=== PATIENT | male | born 1960 | race Caucasian/White ===

== ENCOUNTER 2025-02-24 23:00 | Emergency (ER) | payer SELFPAY ==
[2025-02-24 23:06] VITALS: BP 180/97; PULSE 82; RESP 16; TEMP 36.7; O2SAT 98; BMI 35.0
--- NOTE | 2025-02-24 23:10 | ED_ITS ---
HPI - General Adult General Time Seen by Provider: 23:10 Date Seen: 02/24/25 Chief complaint: Hypertension Stated complaint: High BP 203/103 Time Seen by Provider: 02/24/25 23:09 Source: patient Mode of arrival: ambulatory Limitations: no limitations History of Present Illness HPI narrative: Patient presents today with high blood pressure, recently had lisinopril in creased and noted elevated blood pressure at home tonight. Patient notes he has been checking his blood pressure 3 or 4 times a day as he recently increased his lisinopril. Normally is in the 150-180 range but today it was over 200 and so he decided to come in. Denies chest pain, shortness of breath, numbness or tingling the arms or legs, urinary symptoms. Taking lisinopril 20 mg daily. Related Data Home Medications ?Medication ?Instructions ?Recorded ?Confirmed lisinopril 20 mg tablet 20 mg PO DAILY 02/24/25 02/24/25 Allergies Allergy/AdvReac Type Severity Reaction Status Date / Time No Known Drug Allergies Allergy Verified 02/24/25 23:04 Exam Narrative: Exam Narrative: General: well nourished , NAD Head: Atraumatic and normocephalic ENT: External ears and external nose are normal Eyes: Conjunctiva clear, pupils are equal reactive, external ocular motions are intact Neck: Full spontaneous range of motion of the neck Lungs: No respiratory distress Musculoskeletal: No tenderness or deformity Neurologic: No gross focal neurologic deficits Skin: No rashes Psych: Mood and affect are appropriate Const: Vital Signs, click to edit/add: Vital Signs - 24 hr 02/24/25 23:06 Temperature 98.0 F Pulse Rate [Pulse Oximeter] 82 Respiratory Rate 16 Blood Pressure [Ri ght Upper Arm] 180/97 H Pulse Oximetry 98 Oxygen Delivery Me thod Room Air Course Course ED Course: Patient seen and examined, presents today with asymptomatic hypertension. We had a long discussion about high blood pressure, acute and chronic treatment and complications. Blood pressure slightly improved in the emergency department, patient is asymptomatic as previously stated, and stable for discharge. He has a follow-up appointment with his primary care doctor next week for recheck. Vital Signs Vital signs: Initial Vital Signs Temperature 98.0 F 02/24/25 23:06 Temperature Source Temporal Artery Scan 02/24/25 23:06 Pulse Rate 82 02/24/25 23:06 Respiratory Rate 16 04/15/25 23:06 Blood Pressure 180/97 H 02/24/25 23:06 Blood Pressure Mean 124 H 02/24/25 23:06 Pulse Oximetry 98 02/24/25 23:06 Oxygen Delivery Method Room Air 02/24/25 23:06 Vital Signs Temperature 98.0 F 02/24/25 23:06 Pulse Rate 82 02/24/25 23:06 Respiratory Rate 16 02/24/25 23:06 Blood Pressure 180/97 H 02/24/25 23:06 Pulse Oximetry 98 02/24/25 23:06 Oxygen Delivery Method Room Air 02/24/25 23:06 Temperature 98.0 F 02/24/25 23:06 Pulse Rate 82 02/24/25 23:06 Respiratory Rate 16 02/24/25 23:06 Blood Pressure 180/97 H 02/24/25 23:06 Pulse Oximetry 98 02/24/25 23:06 Oxygen Delivery Method Room Air 02/24/25 23:06 Discharge Plan Discharge Clinical Impression: Hypertension, uncontrolled Patient Disposition: Home, Self-Care Condition: Stable Instructions: Hypertension (ED) Additional Instructions: Continue your lisinopril Check your blood pressure once a day at the same time daily Follow-up with your primary care doctor as scheduled Activity Level: Activity as Tolerated Discharge Diet: Heart Healthy (2 gm sodium, low fat) Prescriptions: No Action lisinopril 20 mg tablet 20 mg PO DAILY Stand Alone Forms: MyHealth Info Instructions
--- OUTSIDE RECORDS SUMMARY | 2025-02-24 23:53 | XMS_ITS | Encounter Summary ---
Author Organization [facility] Address [address] [place] [address] Care Team Providers Care Clinical Science Liaison Name Role Phone Unavailable Primary Care Provider Unavailabl e Prior Encounters Date Type Department Care Team Description 02/13/2025 10:30 AM CDT Office Visit [facility] [place] [address] [place] [address] Poornima Browning, DALJIT Encounter for dental examination and cleaning without abnormal findings (Primary Dx) 02/13/2025 10:30 AM CDT Office Visit [facility] [place] [address] [place] [address] Nichelle Dominguez, [facility] 12/29/2024 1:30 PM FIELD SUPPORT REP Office Visit [facility] [place] [address] [place] [address] Michelle De Luna DDS 08/19/2024 11:00 AM CDT Office Visit [facility] [place] [address] [place] [address] Aziza Taylor, [facility] 05/06/2024 10:00 AM CDT Office Visit [facility] [place] [address] [place] [address] Nichelle Dominguez, [facility] 05/06/2024 7:00 AM CDT Office Visit [facility] [place] [address] [place] [address] Feliberto Trammell DMD Encounter for dental examination and cleaning without abnormal findings (Primary Dx) Last Filed Vital Signs Vital Sign Reading Time Taken Comments Blood Pressure 183/106 02/13/2025 10:50 AM CDT Pulse 85 02/13/2025 10:50 AM CDT Temperature - - Respiratory Rate - - Oxygen Saturation - - Inhaled Oxygen Concentration - - Weight - - Height - - Body Mass Index - - Plan of Treatment Not on file Procedures Procedure Name Priority Date/Time Associated Diagnosis Comments OFFICE VISIT FOR OBSERVATION (DURING REGULARLY SCHEDULED HOURS) - NO OTHER SERVICES PERFORMED Routine 02/13/2025 10:30 AM CDT INTRAORAL PHOTO Routine 02/13/2025 10:30 AM CDT INTRAORAL PHOTO Routine 02/13/2025 10:30 AM CDT INTRAORAL PHOTO Routine 02/13/2025 10:30 AM CDT INTRAORAL PHOTO Routine 02/13/2025 10:30 AM CDT BITEWINGS - FOUR RADIOGRAPHIC IMAGES Routine 02/13/2025 10:30 AM CDT PERIODIC ORAL EVALUATION - ESTABLISHED PATIENT Routine 02/13/2025 10:30 AM CDT Encounter for dental examination and cleaning without abnormal findings NC X-RAY Routine 12/29/2024 1:30 PM FIELD SUPPORT REP 3 CEMENT CROWN Routine 12/29/2024 1:30 PM FIELD SUPPORT REP 3 CORE BUILDUP, INCLUDING ANY PINS WHEN REQUIRED Routine 12/29/2024 1:30 PM FIELD SUPPORT REP 3 CERECFIRED CROWNPOST Routine 1:30 PM FIELD SUPPORT REP INTRAORAL PHOTO Routine 12/29/2024 1:30 PM FIELD SUPPORT REP BITEWING - SINGLE RADIOGRAPHIC IMAGE Routine 12/29/2024 1:30 PM FIELD SUPPORT REP LIMITED ORAL EVALUATION - PROBLEM FOCUSED Routine 12/29/2024 1:30 PM FIELD SUPPORT REP SINGLE X-RAY Routine 12/29/2024 1:30 PM FIELD SUPPORT REP ORAL HYGIENE INSTRUCTIONS Routine 08/19/2024 11:00 AM CDT DUSTIN DECON Routine 08/19/2024 11:00 AM CDT PERIO MAINTENANCE Routine 08/19/2024 11: 00 AM CDT LR ANTIBACT IRR/QUAD Routine 08/19/2024 11:00 AM CDT UR ANTIBACT IRR/QUAD Routine 08/19/2024 11:00 AM CDT UL ANTIBACT IRR/QUAD Routine 08/19/2024 11:00 AM CDT LL ANTIBACT IRR/QUAD Routine 08/19/2024 11:00 AM CDT ALERT 2 PANEL Routine 05/06/2024 10:00 AM CDT ALERT 2 PANEL ANALYSIS Routine 10:00 AM CDT ORAL HYGIENE INSTRUCTIONS Routine 05/06/2024 10:00 AM CDT TOPICAL APPLICATION OF FLUORIDE VARNISH Routine 05/06/2024 10:00 AM CDT UR DUSTIN DECON/QD Routine 05/06/2024 10:00 AM CDT UR ANTIBACT IRR/QUAD Routine 05/06/2024 10:00 AM CDT LR DUSTIN DECON/QD Routine 05/06/2024 10:00 AM CDT LL DUSTIN DECON/QD Routine 05/06/2024 10:00 AM CDT UL DUSTIN DECON/QD Routine 05/06/2024 10:00 AM CDT LR ANTIBACT IRR/QUAD Routine 05/06/2024 10:00 AM CDT LL ANTIBACT IRR/QUAD Routine 05/06/2024 10:00 AM CDT UL ANTIBACT IRR/QUAD Routine 05/06/2024 10:00 AM CDT 18 LL PERIODONTAL SCALING AND ROOT PLANING - ONE TO THREE TEETH PER QUADRANT Routine 05/06/2024 10:00 AM CDT 29 LR PERIODONTAL SCALING AND ROOT PLANING - ONE TO THREE TEETH PER QUADRANT Routine 05/06/2024 10:00 AM CDT 2 UR PERIODONTAL SCALING AND ROOT PLANING - ONE TO THREE TEETH PER QUADRANT Routine 05/06/2024 10:00 AM CDT 16 UL PERIODONTAL SCALING AND ROOT PLANING - ONE TO THREE TEETH PER QUADRANT Routine 05/06/2024 10:00 AM CDT NC X-RAY Routine 05/06/2024 10:00 AM CDT 15 CEMENT CROWN Routine 05/06/2024 7:00 AM CDT 15 CORE BUILDUP, INCLUDING ANY PINS WHEN REQUIRED Routine 05/06/2024 7:00 AM CDT 15 CERECFIRED CROWNPOST Routine 05/06/2024 7:00 AM CDT INTRAORAL PHOTO Routine 05/06/2024 7:00 AM CDT INTRAORAL PHOTO Routine 05/06/2024 7:00 AM CDT INTRAORAL PHOTO Routine 05/06/2024 7:00 AM CDT INTRAORAL PHOTO Routine 05/06/2024 7:00 AM CDT PANORAMIC RADIOGRAPHIC IMAGE Routine 05/06/2024 7:00 AM CDT INTRAORAL - COMPREHENSIVE SERIES OF RADIOGRAPHIC IMAGES Routine 05/06/2024 7:00 AM CDT COMPREHENSIVE ORAL EVALUATION - NEW OR ESTABLISHED PATIENT Routine 05/06/2024 7:00 AM CDT Encounter for dental examination and cleaning without abnormal findings ALERT 2 Routine 05/06/2024 2:00 AM CDT 24 PONTIC Routine 05/06/2024 12:00 AM CDT 23 ABUTMENT Routine 05/06/2024 12:00 AM CDT 25 ABUTMENT Routine 05/06/2024 12:00 AM CDT 25 DENTAL IMPLANT Routine 05/06/2024 12: 00 AM CDT 23 DENTAL IMPLANT Routine 05/06/2024 12: 00 AM CDT 14 ROOT CANAL Routine 05/06/2024 12:00 AM CDT 14 PFM CROWN Routine 05/06/2024 12:00 AM CDT 19 PFM CROWN Routine 05/06/2024 12:00 AM CDT 18 PFM CROWN Routine 05/06/2024 12:00 AM CDT 30 PFM CROWN Routine 05/06/2024 12:00 AM CDT 31 PFM CROWN Routine 05/06/2024 12:00 AM CDT 8 ROOT CANAL Routine 05/06/2024 12:00 AM CDT 15 O AMALGAM FILLING Routine 05/06/2024 12:00 AM CDT 3 LO AMALGAM FILLING Routine 05/06/2024 12:00 AM CDT 2 O AMALGAM FILLING Routine 05/06/2024 1 2:00 AM CDT Results * (ABNORMAL) Alert 2 (05/06/2024 2:00 AM CDT) (Aa) Aggregatibacter actinomycetemcomitans [facility] Comment:Not Detected (Pg) Porphyromonas gingivalis [facility] Comment:Not Detected (Tf) Tannerella forsythia [facility] Comment:Not Detected (Td) Treponema denticola [facility] Comment:Not Detected (En) Eubacterium nodatum [facility] Comment:Not Detected (Fn) Fusobacterium nucleatum/periodonticum 194,469 genomes/ mL [facility] (Pi) Prevotella intermedia 1,626 genomes/ mL [facility] (Cr) Campylobacter rectus [facility] Comment:Not Detected (Pm) Peptostreptococcus (Micromonas) micros 8,086 genomes/ mL [facility] (Ec) Eikenella corrodens [facility] Comment:Not Detected (Cs) Capnocytophaga species (gingavalis,ochracea,spu tigena) 41,264 genomes/ mL [facility] MyPerioID IL6 Risk High Risk(A) [facility] IL-6 G/G(A) [facility] Oral Rinse, Preservative 05/06/2024 2:00 AM CDT 05/12/2024 1:19 PM CDT Narrative [facility] - 05/14/2024 11:24 AM CDT - Comment: Patient result indicates bacterial risk is not elevated. - Interpretation: This individual's interleukin 6 genotype (IL-6) is G/G. This MyPerioID result indicates your patient has a high risk for periodontal inflammation due to the genetic variation examined in this test. - Significance: The prevalence of the G/G genotype is reported to be higher in individuals with moderate to severe chronic periodontitis and aggressive periodontitis than in individuals with no periodontal disease. This finding was independent of other risk factors such as age, smoking, and ethnic origin. The 'G' allele is associated with overproduction of IL-6 cytokine in the presence of pathogenic periodontal bacteria. - Risk: Individuals carrying an IL-6 G allele are associated with increased odds of the concomitant detection of A. actinomycetemcomitans, P. gingivalis, and T. forsynthensis. - Consider: IL-6 is a potent stimulator of osteoclast differentiation and bone resorption, is an inhibitor of bone formation, and overproduction of IL-6 has been implicated in systemic diseases such as juvenile chronic arthritis, rheumatoid arthritis, osteoporosis, Paget's disease, and Sjogren's syndrome. The MyPerioID test assesses one of several risk factors that should be included in an overall evaluation of periodontal disease. Specific bacteria are associated with IL-6 initiation of the periodontal disease. Additional risk factors, including other genetic markers, smoking, diabetes, and oral hygiene, have an amplifying effect on disease progression and duration. The incidence of IL-6 genotypes is reported to vary by ethnicity. Additional testing, such as MyPerioPath, may be considered if not already performed. Feliberto Trammell DMD PDS [facility] Final Result [facility] [address] [place] [address], Visit Diagnoses Diagnosis Start Date Encounter for dental examination and cleaning without abnormal findings 05/06/2024 Encounter for dental examination and cleaning without abnormal findings 02/13/2025 Insurance [facility]
--- OUTSIDE RECORDS SUMMARY | 2025-02-24 23:53 | XMS_ITS | Clinical Summary ---
Author Organization [facility] Address [address] [place] [address] Care Team Providers Care Booster Plant Operator Name Role Phone Salvador Chacon MD Primary Care Provider [phone] Allergies No known active allergies Medications lisinopriL (PRINIVIL; ZESTRIL) 5 mg tabletIndication s:Hypertension, unspecified type TAKE 1 TABLET BY MOUTH EVERY DAY 30 Tablet 08/28/2022 Active Active Problems Problem Noted Date Diagnosed Date Vitamin D deficiency 11/11/2012 Overview (11/11/2012): Level = 19.6 October,. Impaired fasting glucose 07/10/2011 Hyperlipidemia LDL goal < 100 07/10/2011 Overview (11/08/2012): LDL not at goal. No medications. Hypertension 05/19/2011 Overview (01/20/2014): Treatment initiated June,. Lisinopril 5 mg/day Obesity 05/19/2011 Overview (04/23/2012): BMI > 44 Resolved Problems Problem Noted Date Diagnosed Date Resolved Date Special screening for malign ant neoplasms, colon 01/06/2013 01/20/2014 Elevated fasting blood sugar 07/10/2011 06/10/2021 Immunizations Immunization Administration Dates Next Due COVID-19 vaccine (Moderna 100mcg/0.5mL) FILIBERTO KENDALL 02/03/2021,01/10/2021 Influenza, IIV3 (Age >=3 years) 09/23/2020 MMR 10/05/2003 Td (Age >=7 Years) 08/22/2018,10/05/2003 Tdap 02/11/2008 Family History Medical History Relation Name Comments No Known Problems Brother 1 No Known Problems Brother 2 Cancer-prostate Father dx age 60 Diabetes Father diet control Heart Disease Father CAD early 60s Good Health Mother No Known Problems Sister Relation Name Status Comments Brother 1 Alive Brother 2 Alive Father Alive Mother Alive DM, Prostate CA Sister Alive Social History Tobacco Use Types Packs/Day Years Used Date Smoking Tobacco: Never Smokeless Tobacco: Never Tobacco Cessation:Counseling Given: Yes Alcohol Use Standard Drinks/Week Comments Yes 1 (1 standard drink = 0.6 oz pur e alcohol) PHQ-2 Answer Date Recorded PHQ-2 TOTAL SCORE 0 06/10/2021 Social Connections Answer Date Recorded Frequency of Communication with Friends and Fami ly Not on file 11/02/2021 Financial Resource Strain Answer Date R ecorded Difficulty of Paying Living Expenses Not on file 11/02/2021 Difficulty of Paying Living Expenses Not on file 11/02/2021 Sex and Gender Information Value Date Recorded Sex Assigned at Not on file Legal Sex Male 6:19 AM TALENT ADVISOR Gender Identity Not on file Sexual Orientation Not on file Obstetrics History Last Filed Vital Signs Vital Sign Reading Time Taken Comments Blood Pressure 136/72 06/10/2021 10:34 AM CDT Pulse 68 06/10/2021 10:34 AM CDT Temperature 37.3 C (99.2 F) 07/17/2014 8:12 AM CDT Respiratory Rate 16 06/16/2014 10:2 3 AM CDT Oxygen Saturation 95% 10/14/2019 1:01 PM TALENT ADVISOR Inhaled Oxygen Concentration - - Weight 129.2 kg (284 lb 12.8 oz) 2020 10:34 AM CDT Height 176.5 cm (5' 9.5) 06/10/2021 10 :34 AM CDT Body Mass Index 41.45 06/10/2021 10:34 AM CDT Plan of Treatment Health Maintenance Due Date Last Done Comments Hepatitis C screening for ag e 18-79 1976 Pneumococcal series for age 50+ (1 of 1 - PCV) 2008 Zoster (shingles) series for age 50+ (1 of 2) 2008 BMI (ht and wt on same day) for age 18+ 06/10/2022 06/10/2021, 10/14/2019, 08/22/2018, Additional history exists Depression screening for age 12+ 06/10/2022 06/10/2021, 10/14/2019, 10/14/2019, Additional history exists Colonoscopy through age 75 01/06/2023 01/06/2013 COVID-19 vaccine series ( season) 2024 02/03/2021, 01/10/2021 Influenza Vaccine (Season Ended) 2025 09/23/20 20 Lipids for age 45-75 06/09/2026 06/09/2021, 10/14/2019, 08/22/2018, Additional history exists Tetanus booster 08/22/2028 08/22/2018, 0411/2007, 10/05/2003 RSV vaccine for adults or (1 - 1-dose 75+ series) 2033 Tdap Completed 02/11/2008 Medical Devices Implanted Type Area Bonbon Cream Warmer Device Identifier Shelf Expiration Date Model / Serial / Lot Lens, Cataract Zcb00 - [id number] Implanted:Qty: 1 on 06/09/2014 by Rose Mary Lund MD at [facility] Right: Eye R-XYGENT 11/09/2017 ZCB00 / [id number] / NA Lens, Cataract Zcb00 - [id number] Implanted:Qty: 1 on 06/16/2014 by Rose Mary Lund MD at [facility] Left: Eye R-XYGENT 10/16/2017 ZCB00 / [id number] / NA Procedures Procedure Name Priority Date/Time Associated Diagnosis Comments LIPID PANEL W REFLEX MEASURED LDL Routine 06/09/2021 8:08 AM CDT Hyperlipidemia with target LDL less than 100 SCAN-COLONOSCOPY 01/06/2013 12:0 0 AM TALENT ADVISOR from Last 3 Months or Most Recently Relevant to Health Maintenance Results * (ABNORMAL) LIPID PANEL W REFLEX MEASURED LDL (06/09/2021 8:08 AM CDT) CHOLESTEROL,TOTAL 188 100 - 199 mg/dL 06/09/2021 12:46 PM CDT [facility] TRIGLYCERIDES 149 <150 mg/dL 06/09/2021 12:46 PM CDT [facility] HDL CHOLESTEROL 30(L) >40 mg/dL 12:46 PM CDT [facility] NON-HDL CHOLESTEROL 158(H) <145 mg/dl 06/09/2021 12:46 PM CDT [facility] CHOL/HDL RATIO 6.27(H) <4.50 06/09/2021 12:46 PM CDT [facility] LDL CHOLESTEROL 128 <=130 mg/dL 06/09/2021 12:46 PM CDT [facility] VLDL CHOLESTEROL 30 mg/dL 06/09/20 12:46 PM CDT [facility] PROVIDER ORDERED STATUS RANDOM 06/09/2021 12:46 PM CDT [facility] Blood BLOOD SPECIMEN / Unknown Venipuncture / Unknown 06/09/2021 8:08 AM CDT 06/09/2021 8:08 AM CDT us Bao Roque MD CHEMISTRY Final Resu lt [facility] [address] [place] [address], [place] * SCAN-COLONOSCOPY (01/06/2013 12:00 AM TALENT ADVISOR) Narrative 01/06/2013 12:00 AM TALENT ADVISOR Procedure Note Scanner - 01/06/2013 12:00 AM CST us Scanner OTHER Final Result from Last 3 Months or Most Recently Relevant to Health Maintenance Advance Directives * Full Code (Latest Code Status on File) Date Activated Date Inactivated Comments 06/16/2014 8:06 AM 06/16/2014 1:23 PM * Full Code Date Activated Date Inactivated Comments 06/09/2014 6:43 AM 06/09/2014 1:46 PM * Full Code Date Activated Date Inactivated Comments 01/06/2013 10:54 AM 01/07/2013 2:27 AM Care Teams Booster Plant Operator Relationship Specialty Start Date End Date Salvador Chacon MD [address] [facility] [address] [address] PCP - General Family Practice 12/05/22
--- OUTSIDE RECORDS SUMMARY | 2025-02-24 23:53 | XMS_ITS | Encounter Summary ---
Author Organization [facility] Address [address] [place] [address] Care Team Providers Care Line Cook Name Role Phone Unavailable Primary Care Provider Unavailabl e Encounter Details Date Type Department Care Team (Late st Contact Info) Description 02/13/2025 10:30 AM CDT Office Visit [facility] at [place] [facility] [place] [address] [place] [address] Poornima Browning, DALJIT [address] [place] [address] Encounter for dental examination and cleaning without abnormal findings (Primary Dx) Social History Tobacco Use Types Packs/Day Years Used Date Smoking Tobacco: Never Smokeless Tobacco: Never Alcohol Use Standard Drinks/Week Comments Not Currently 2 (1 standard drink = 0.6 oz pur e alcohol) ' Sex and Gender Information Value Date Recorded Sex Assigned at Not on file Legal Sex Male 8:18 AM PDT Gender Identity Not on file Sexual Orientation Not on file documented as of this encounter Progress Notes * Poornima Browning DMD - 02/13/2025 10:30 AM CDT Procedure Details D0120 - PERIODIC ORAL EVALUATION - ESTABLISHED PATIENT EXAM NOTE Chief Condition: no complaint, wants exam and cleaning Past Medical History: Diagnosis Date Hypertension Hypertension 05/19/2011 Past Surgical History: Procedure Laterality Date JOINT REPLACEMENT 2013 Social History Tobacco Use Smoking status: Never Smokeless tobacco: Never Substance Use Topics Alcohol use: Not Currently Alcohol/week: 2.0 standard drinks of alcohol Types: 2 Cans of beer per week Comment: ' No family history on file. Current Outpatient Medications on File Prior to Visit Medication Sig Dispense Refill cephalexin (KEFLEX) 500 mg capsule 1 capsule every 8 (eight) hours. HYDROcodone-acetaminophen (NORCO) 5-325 mg tablet every 6 (six) hours. albuterol HFA (PROVENTIL HFA;VENTOLIN HFA) 90 mcg/actuation inhaler take 2 puffs by mouth every 6 hours as needed for wheezing lisinopriL (PRINIVIL,ZESTRIL) 5 mg tablet Take 5 mg by mouth 1 (one) time each day. No current facility-administered medications on file prior to visit. Radiographic Interpretation: Associated radiographs for today's visit were reviewed and finding(s) were discussed with the patient. Hard Tissue Exam: Caries exam: No decay Mobility: WNL Occlusion: Class I molar Cold sensitivity: WNL Heat sensitivity: WNL Percussion: WNL Perio: Perio Diagnosis: Stage III, Grade B Periodontitis, Distribution: Generalized Patient has moderate plaque and calculus build up Patient's oral hygiene is Fair TMJ: TMJ Clicking: TMJ clicking WNL TMJ Pain: TMJ Pain WNL Oral cancer screening: Performed oral cancer screening with head, including face and mouth, neck & joint exam. After thorough examination, the patient was advised of the following: Periodontal maintenance and recall recommended. Treatment Plan: CCX Perio Maintenance D0274 - BITEWINGS - FOUR RADIOGRAPHIC IMAGES D0350 - INTRAORAL PHOTO D0350 - INTRAORAL PHOTO D0350 - INTRAORAL PHOTO D0350 - INTRAORAL PHOTO No decay noted. Pts BP was 180/104 and was too high for cleaning. Told pt to see PCP ELI. Pt stated they take their medicate regularly for high BP. NV: PM documented in this encounter Miscellaneous Notes * Dental Procedure Details - Poornima Browning DMD - 02/13/2025 10:30 AM CDT EXAM NOTE Chief Condition: no complaint, wants exam and cleaning Past Medical History: Diagnosis Date Hypertension Hypertension 05/19/2011 Past Surgical History: Procedure Laterality Date JOINT REPLACEMENT 2013 Social History Tobacco Use Smoking status: Never Smokeless tobacco: Never Substance Use Topics Alcohol use: Not Currently Alcohol/week: 2.0 standard drinks of alcohol Types: 2 Cans of beer per week Comment: ' No family history on file. Current Outpatient Medications on File Prior to Visit Medication Sig Dispense Refill cephalexin (KEFLEX) 500 mg capsule 1 capsule every 8 (eight) hours. HYDROcodone-acetaminophen (NORCO) 5-325 mg tablet every 6 (six) hours. albuterol HFA (PROVENTIL HFA;VENTOLIN HFA) 90 mcg/actuation inhaler take 2 puffs by mouth every 6 hours as needed for wheezing lisinopriL (PRINIVIL,ZESTRIL) 5 mg tablet Take 5 mg by mouth 1 (one) time each day. No current facility-administered medications on file prior to visit. Radiographic Interpretation: Associated radiographs for today's visit were reviewed and finding(s) were discussed with the patient. Hard Tissue Exam: Caries exam: No decay Mobility: WNL Occlusion: Class I molar Cold sensitivity: WNL Heat sensitivity: WNL Percussion: WNL Perio: Perio Diagnosis: Stage III, Grade B Periodontitis, Distribution: Generalized Patient has moderate plaque and calculus build up Patient's oral hygiene is Fair TMJ: TMJ Clicking: TMJ clicking WNL TMJ Pain: TMJ Pain WNL Oral cancer screening: Performed oral cancer screening with head, including face and mouth, neck & joint exam. After thorough examination, the patient was advised of the following: Periodontal maintenance and recall recommended. Treatment Plan: CCX Perio Maintenance documented in this encounter Plan of Treatment Not on file documented as of this encounter Procedures Procedure Name Priority Date/Time Associated Diagnosis Comments INTRAORAL PHOTO Routine 02/13/2025 10:30 AM CDT INTRAORAL PHOTO Routine 02/13/2025 10:30 AM CDT INTRAORAL PHOTO Routine 02/13/2025 10:30 AM CDT INTRAORAL PHOTO Routine 02/13/2025 10:30 AM CDT BITEWINGS - FOUR RADIOGRAPHIC IMAGES Routine 02/13/2025 10:30 AM CDT PERIODIC ORAL EVALUATION - ESTABLISHED PATIENT Routine 02/13/2025 10:30 AM CDT Encounter for dental examination and cleaning without abnormal findings documented in this encounter Visit Diagnoses Diagnosis Encounter for dental examination and cleaning without abnormal findings- Primary documented in this encounter
--- OUTSIDE RECORDS SUMMARY | 2025-02-24 23:53 | XMS_ITS | Encounter Summary ---
Author Organization [facility] Address [address] [place] [address] Care Team Providers Care Brand Communications Manager Name Role Phone Unavailable Primary Care Provider Unavailabl e Encounter Details Date Type Department Care Team (Late st Contact Info) Description 02/13/2025 10:30 AM CDT Office Visit Dentists at [facility] [address] [place] [phone] Nichelle Dominguez [facility] [address] [place] [address] Social History Tobacco Use Types Packs/Day Years [...] on file documented as of this encounter Last Filed Vital Signs Vital Sign Reading Time Taken Comments Blood Pressure 183/106 02/13/2025 10:50 AM CDT Pulse 85 02/13/2025 10:50 AM CDT Temperature - - Respiratory Rate - - Oxygen Saturation - - Inhaled Oxygen Concentration - - Weight - - Height - - Body Mass Index - - documented in this encounter Progress Notes * Nichelle Dominguez RDH - 02/13/2025 10:30 AM CDTSummary: patient not seen Patient came in for PMV and exam. Provider choice to not see the patient due to high blood pressure. Provider rec that he see his PCP within the next few weeks. We rescheduled the patient for 02/23/2025 at 7:30am -KR documented in this encounter Plan of Treatment Not on file documented as of this encounter Procedures Procedure Name Priority Date/Time Associated Diagnosis Comments OFFICE VISIT FOR OBSERVATION (DURING REGULARLY SCHEDULED HOURS) - NO OTHER SERVICES PERFORMED Routine 02/13/2025 10:30 AM CDT documented in this encounter Visit Diagnoses Not on filedocumented in this encounter
--- OUTSIDE RECORDS SUMMARY | 2025-02-24 23:53 | XMS_ITS | Clinical Summary ---
Author Organization [facility] Address [address] [place] [address] Care Team Providers Care Educational Interpreter Name Role Phone Unavailable Primary Care Provider Unavailabl e Medications lisinopriL (PRINIVIL,ZESTR IL) 5 mg tablet Take 5 mg by mouth 1 (one) time each day. Active albuterol HFA (PROVENTIL HFA;VENTOLIN HFA) 90 mcg/actuation inhaler 11/24/2024 Active cephalexin (KEFLEX) 500 mg capsule 1 capsule every 8 (eight) hours. 12/31/2024 Active HYDROcodone-zack taminophen (NORCO) 5-325 mg tablet every 6 (six) hours. 05/29/2024 Active Active Problems Problem Noted Date Diagnosed Date Periodontitis 02/13/2025 Vitamin D deficiency 11/11/2012 Overview (05/06/2024): Level = 19.6 October,. Elevated fasting blood sugar 07/10/2011 Hyperlipidemia 07/10/2011 Overview (05/06/2024): LDL not at goal. No medications. Impaired fasting glucose 07/10/2011 Hypertension 05/19/2011 Overview (05/06/2024): Treatment initiated June,. Lisinopril 5 mg/day Encounters Date Type Department Care Team Description 02/13/2025 10:30 AM CDT Office Visit Dentists at [place] [address] [place] [phone] Poornima Browning, DALJIT Encounter for dental examination and cleaning without abnormal findings (Primary Dx) 02/13/2025 10:30 AM CDT Office Visit [facility] at [place] [address] [place] [phone] Nichelle Dominguez, [facility] 12/29/2024 1:30 PM PROFESSOR OF KINESIOLOGY Office Visit [facility] at [place] [address] [place] [phone] Michelle De Luna, BLAIR from Last 3 Months Immunizations Immunization Administration Dates Next Due COVID-19, mRNA, LNP-S, PF, 1 00 mcg/0.5mL dose or 50 mcg/0.25mL dose 02/03/2021,01/10/2021 Influenza, injectable, quadrivalent, preservativ e free 08/29/2021 Influenza, split virus, trivalent, preservative 09/23/2020 MMR 10/05/2003 Td, adult, 2 Lf tetanus toxo id, preservative free, adsorbed 08/22/2018,10/05/2003 Tdap 02/11/2008 Social History Tobacco Use Types Packs/Day Years Used Date Smoking Tobacco: Never Smokeless Tobacco: Never Tobacco Cessation:Counseling Given: Not Answered Alcohol Use Standard Drinks/Week Comments Not Currently 2 (1 standard drink = 0.6 oz pur e alcohol) ' Sex and Gender Information Value Date Recorded Sex Assigned at Not on file Legal Sex Male 8:18 AM PDT Gender Identity Not on file Sexual Orientation Not on file Last Filed Vital Signs Vital Sign Reading Time Taken Comments Blood Pressure 183/106 02/13/2025 10:50 AM CDT Pulse 85 02/13/2025 10:50 AM CDT Temperature - - Respiratory Rate - - Oxygen Saturation - - Inhaled Oxygen Concentration - - Weight - - Height - - Body Mass Index - - Plan of Treatment Health Maintenance Due Date Last Done Comments My PerioPath 08/06/2024 05/06/2024 Periodontal Maintenance 11/20/2024 08/19/2024 Dental Oral Exam 08/16/2025 02/13/2025, 05/06/2024 Dental X-Ray: Bitewings 08/16/2025 02/13/2025 Scaling and Root Planing 05/20/2026 024, 05/06/2024, 05/06/2024, Additional history exists Dental X-Ray: Full Mouth 05/07/2027 05/06/2024 Dental X-Ray: Panoramic 05/07/2027 05/06/2024 Meningococcal B Vaccine Aged Out No l onger eligible based on patient's age to complete this topic Procedures Procedure Name Priority Date/Time Associated Diagnosis [...] findings NC X-RAY Routine 12/29/2024 1:30 PM PROFESSOR OF KINESIOLOGY 3 CEMENT CROWN Routine 12/29/2024 1:30 PM PROFESSOR OF KINESIOLOGY 3 CORE BUILDUP, INCLUDING ANY PINS WHEN REQUIRED Routine 12/29/2024 1:30 PM PROFESSOR OF KINESIOLOGY 3 CERECFIRED CROWNPOST Routine 1:30 PM PROFESSOR OF KINESIOLOGY INTRAORAL PHOTO Routine 12/29/2024 1:30 PM PROFESSOR OF KINESIOLOGY BITEWING - SINGLE RADIOGRAPHIC IMAGE Routine 12/29/2024 1:30 PM PROFESSOR OF KINESIOLOGY LIMITED ORAL EVALUATION - PROBLEM FOCUSED Routine 12/29/2024 1:30 PM PROFESSOR OF KINESIOLOGY SINGLE X-RAY Routine 12/29/2024 1:30 PM PROFESSOR OF KINESIOLOGY PERIO MAINTENANCE Routine 08/19/2024 11: 00 AM CDT 2 UR PERIODONTAL SCALING AND ROOT PLANING - ONE TO THREE TEETH PER QUADRANT Routine 05/06/2024 10:00 AM CDT PANORAMIC RADIOGRAPHIC IMAGE Routine 05/06/2024 7:00 AM CDT INTRAORAL - COMPREHENSIVE SERIES OF RADIOGRAPHIC IMAGES Routine 05/06/2024 7:00 AM CDT ALERT 2 Routine 05/06/2024 2:00 AM CDT from Last 3 Months or Most Recently Relevant to Health Maintenance Results * (ABNORMAL) Alert 2 (05/06/2024 2:00 [...] PDS [facility] Final Result [facility] [address] [place] [address], from Last 3 Months or Most Recently Relevant to Health Maintenance Insurance [facility] [employer]
--- OUTSIDE RECORDS SUMMARY | 2025-02-24 23:53 | XMS_ITS | Continuity of Care Document ---
Author Organization [facility] Address [address] [place] [address] Phone Care Team Providers Care Die Trouble Shooter Name Role Phone Kimberli Rhodes MD Unavailable Unavailable Medications Medication Instructions Dosage Effective Dates (start - stop) Status Comments metoprolol succinate ER 25 mg tablet,extended release 24 hr take 1 tablet by oral route every day 25 MG - Active Crestor 10 mg tablet take 1 tablet by or al route every day 10 MG - Active aspirin 81 mg chewable tablet chew 1 tablet by oral route every day 81 MG - Active lisinopril 5 mg tablet take 1 tablet by oral route every day 5 MG - Active Procedures Procedure Date STRESS TTE COMPLETE OFFICE/OUTPATIENT VISIT, EST TTE W/DOPPLER, COMPLETE Ekg Routine Ecg W/12 Lead W/Interpre/Rpt OFFICE/OUTPATIENT VISIT, NEW Advance Directives Directive Yes / No Effective Date File Name No Information Encounters Encounter Description Practice Location Reason(s) For Visit Diagnoses Date Provider Providers Copied on Encounter OFFICE/OUTPA TIENT VISIT, EST [facility] [address], [place], [place], [id number] , [place] tel:[phone] [place] CV prevention - (chief complaint) Shortness of breath b0 0 [place] Richy lindsey [address], [place], [address], [place]. tel:[phone] Referring Provider: Richy corley Joseph y OLD, [address], [place], [address]. tel:[phone] [facility] [address], [place], [place], [id number] , [place] tel:[phone] [place] y preventative CV, brother with hx of CAD/CABG (chief complaint) Shortness of breath 0 [place] Richy corley. [address], [place], [address], [place]. tel:[phone] Referring Provider: Wilianthanhadinamik barney Ruiz y OLD, [address], [place], [address]. tel:[phone] Family History Family Member Type Diagnosis Age At Onset No Information Payers Payer name Insurance type Covered alliance party ID Authoriza tion(s) [facility] [employer] [facility] [id number] Social History Type Description Quantity Date Captured Comments Alcohol Use Details Unknown Caffeine Use Details Unknown Tobacco Use Status No Information Smoking Status No Information Sex Male Vital Signs Date / Time: Height Weight BMI Pulse Rate Blood Pressure Temperature Respiratory Rate Body Surface Area Head Circumference Head Circ. Percentile Wt./Billy. Percentile BMI percentile Pulse Ox Inhaled Ox 10:39 AM 72.00 in 136.531 kg (301.00 lbs) 40.8 2 kg/m eter (2) 85 /min 146/86 mm[Hg] 97 % Chief Complaint And Reason For Visit From encounter dated '12/16/2019 10:30'. CV prevention - (chief complaint). Description: Mr Encarnacion is here for a follow up appt after havinga stress echo. PMH of HTN. He had a calcium score was 582 and his brother who is fitter and youngerthan he had CABG just recently which promoted him to come. He denies any cardiac symptoms. No angina or chest pressures. No syncope dizziness or blackout spells. No congestive symptoms of the heart such as PND orthopnea or significant edema peripherally or in his abdomen. No sustained rapid palpitations. No strokelike symptoms. He reports some dyspnea with exertion with heavy exercise during pickleball. Impression/Plan:Echo Normal biventricular size and systolic function, LVEF>60% with normal wall motion. No significcant vavlve disease. No intracardiac shunts. Normal PA pressure by RVSP or PVAT.BP is elevated on 5 mg lisinoprilEKG today demonstrates sinus rhythm with a right bundle branch block but normal AV conduction. 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 However HTN response to exercise Given FH heart disease and risk factors in addition to HTN exercise response initiating: metoprolol succinate 25 mgASA 81 mgsLipids - LDL 104 HDL 35 TRIGLYCERIDES 158 TOTAL 171 initiating crestor 10 - moderate dose to get LDL < 70 Get tested for OSAPt encouraged to lose weight with goal of 1-2 lbs weekly and to maintain healthy weight and instructed on healthy diet; increase fiber, lean protein, and water and decrease portion sizes, red meats, fried foods, sweets, and sodas. Pt encouraged to participate in regular aerobic exercise, such as brisk walking, with goal of 30 minutes daily.RTC 1 month with BP log Reason For Referral Reason For Referral No Information Plan Of Treatment Date Type Action Status Goal Zoster vaccine (). Due on due Goal Tdap. Due on due Goal Td vaccine. Due on 20 due Goal Sigmoidoscopy. Due on due Goal Lipid panel. Due on 020 due Goal Influenza vaccine. Due on due Goal Dilated Eye Exam. Due on Dec due Goal FOBT. Due on due Goal Colonoscopy. Due on due Goal Depression screening. Due on due Goal Depression screening. Due on due Goal Zoster vaccine (1st). Due on due Goal Td vaccine. Due on 20 due Goal Lipid panel. Due on due Goal Influenza vaccine. Due on due Goal FOBT. Due on due Goal Colonoscopy. Due on due Goal Sigmoidoscopy. Due on due Goal Dilated Eye Exam. Due on Nov due Goal Tdap. Due on due History Of Present Illness Encounter Date Complaint History Of Prese nt Illness CV prevention - Mr Encarnacion is her e for a follow up appt after having a stress echo. PMH of HTN. He had a calcium score was 582 and his brother who is fitter and younger than he had CABG just recently which promoted him to come. He denies any cardiac symptoms. No angina or chest pressures. No syncope dizziness or blackout spells. No congestive symptoms of the heart such as PND orthopnea or significant edema peripherally or in his abdomen. No sustained rapid palpitations. No strokelike symptoms. He reports some dyspnea with exertion with heavy exercise during pickleball. Impression/Plan:Echo Normal biventricular size and systolic function, LVEF>60% with normal wall motion. No significcant vavlve disease. No intracardiac shunts. Normal PA pressure by RVSP or PVAT.BP is elevated on 5 mg lisinoprilEKG today demonstrates sinus rhythm with a right bundle branch block but normal AV conduction. 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 However HTN response to exercise Given FH heart disease and risk factors in addition to HTN exercise response initiating: metoprolol succinate 25 mgASA 81 mgsLipids - LDL 104 HDL 35 TRIGLYCERIDES 158 TOTAL 171 initiating crestor 10 - moderate dose to get LDL < 70 Get tested for OSAPt encouraged to lose weight with goal of 1-2 lbs weekly and to maintain healthy weight and instructed on healthy diet; increase fiber, lean protein, and water and decrease portion sizes, red meats, fried foods, sweets, and sodas. Pt encouraged to participate in regular aerobic exercise, such as brisk walking, with goal of 30 minutes daily.RTC 1 month with BP log preventative CV, bro ther with hx of CAD/CABG Dontae is referred for a comprehensive cardiac evaluation. Delightful gentleman. He has no prior history of cardiovascular disease. No history of heart attack stroke congestive heart failure coronary events or arrhythmias. Has not had any specific cardiac symptoms such as angina. Near syncope or syncope. His breathing and energy have largely very good. His brother underwent a very surprising discovery of significant multivessel coronary disease and had successful bypass in [place].0 He moved out here [place] about a year and a half ago from [place] and one of his fellow members of his yazidism advised that he come visit with us. Number of years ago he had a basic cardiac evaluation. Back in October he had a calcium score done demonstrated a total score of 582 324 and the left anterior descending 27 and the circumflex to 31 and the right coronary this was done in [place].Again he is clinically asymptomatic presently. He just felt that his brother's history be important for him to get checked out and determine next steps.Past medical history surgical history social hhistory family history home medications are galleries all reviewed attached referral documents verified by me.Impression/plan:We had a really nice visit today. Today's blood pressure is very high but it is his first visit. I will need him to keep an eye on his blood pressure critically important since we may need to consider alternative therapies.His EKG today demonstrates sinus rhythm with a right bundle branch block but normal AV conduction. 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 Functional Status Date Functional Assessmen t No Information Instructions Date Instruction Additional Infor jojo Blood Pressure Diary Assessments Type Assessment Date assessment Shortness of breath Patient Care Teams Name Effective Dates (start - stop) Status Members No Information
--- OUTSIDE RECORDS SUMMARY | 2025-02-24 23:53 | XMS_ITS | Clinical Summary ---
Author Organization [facility] Address [address] [place] [id number] Phone [email or web address] Care Team Providers Care Linen Room Houseperson Name Role Phone Unavailable Primary Care Provider Unavailabl e Allergies No known active allergies Medications lisinopril (ZESTRIL) 5 MG tablet 10/14/2021 Active Active Problems Problem Noted Date Diagnosed Date Vitamin D deficiency 11/11/2012 Overview (11/02/2021): Level = 19.6 October,. Overview: Level = 19.6 October,. Hyperlipidemia 07/10/2011 Overview (11/02/2021): LDL not at goal. No medications. Overview: LDL not at goal. No medications. Hypertension 05/19/2011 Overview (11/02/2021): Treatment initiated June,. Lisinopril 5 mg/day Overview: Treatment initiated June,. Lisinopril 5 mg/day Obesity 05/19/2011 Overview (11/02/2021): BMI > 44 Overview: BMI > 44 Immunizations Name Administration Dates Next Due Influenza, (Afluria Fluarix Flulaval Fluzone) quad, PF (CVX-[id number]) 08/29/2021,09/23/2020 Social History Tobacco Use Types Packs/Day Years Used Date Smoking Tobacco: Never Assessed Intimate Partner Violence Answer Date R ecorded Insults You Not on file 02/23/2021 Threatens You Not on file 02/23/2021 Screams at You Not on file 02/23/2021 Physically Hurt Not on file 02/23/2021 Intimate Partner Violence Score Not on file 02/23/2021 Stress Answer Date Recorded Stress in your Life Not on file 09/15/2024 Dealing with Stress 3 09/15/2024 Sex and Gender Information Value Date Recorded Sex Assigned at Not on file Legal Sex Male 9:02 AM CDT Gender Identity Not on file Sexual Orientation Not on file Last Filed Vital Signs Vital Sign Reading Time Taken Comments Blood Pressure - - Pulse - - Temperature - - Respiratory Rate - - Oxygen Saturation - - Inhaled Oxygen Concentration - - Weight 132 kg (290 lb) 11/02/2021 9:35 AM WILLOWER Height 177.8 cm (5' 10) 11/02/2021 9:35 AM WILLOWER Body Mass Index 41.61 11/02/2021 9:35 AM WILLOWER Plan of Treatment Health Maintenance Due Date Last Done Comments Dental Cleaning/Exam 1960 Hepatitis C Screening 1960 Annual Preventive Exam 1976 Hep B Infection Screening - Triple Screen 1976 Colorectal Cancer Screening 1988 Pneumococcal: 65+ Years (1 o f 1 - PCV) 2008 Zoster Immunization (1 of 2) 2008 Covid-19 Immunization (3 - season) 2024 02/03/2021, 01/10/2021 Influenza Immunization (Season Ended) 2025 08/29/2021, 09/23/2020 Tetanus Diphtheria and Pertussis Immunization (3 - Td or Tdap) 08/22/2028 08/22/2018, 02/11/2008, 10/05/2003 HIB Immunization Aged Out No longer e ligible based on patient's age to complete this topic HPV Immunization Aged Out No longer e ligible based on patient's age to complete this topic Hepatitis A Immunization Aged Out No longer eligible based on patient's age to complete this topic Hepatitis B Immunization Aged Out No longer eligible based on patient's age to complete this topic Polio Immunization Aged Out No longer eligible based on patient's age to complete this topic Insurance COPAY 20
== END 2025-02-24 23:53 | disposition home or self-care (01) ==
LOC: ED 23:51
PROVIDERS: Emergency Provider Family Medicine
DX: I10 Essential (primary) hypertension (principal)
CPT/HCPCS: 99282; 99283